=== PATIENT | male | born 1955 | race Caucasian/White ===

== ENCOUNTER 2021-03-12 11:33 | Inpatient (IN) | payer OTHER ==
[~2021-03-12] VITALS: Ht 177.8 cm; Wt 86.8 kg
[~2021-03-12 11:33] MED LIST: ASPI-1071 PO; ATOR10TA PO; BUDE10.22 INH; FURO-150 PO; METO-395 PO
--- NOTE | 2021-03-12 11:52 | NUR ---
Patient confirmed he is not on home O2. SPO2 96% on room air.
[2021-03-12 12:01] LABS: BASOPHILS # (AUTO) 0.1 X10'3 (0-0.2); EOSINOPHILS # (AUTO) 0.1 X10'3 (0-0.9); EOSINOPHILS % (AUTO) 1.5 % (0-6); HEMATOCRIT 46.6 % (42.0-52.0); HEMOGLOBIN 15.3 g/dl (14.0-17.9); LYMPHOCYTES # (AUTO) 1.5 X10'3 (1.1-4.8); LYMPHOCYTES % (AUTO) 19.9 % (21-51); MEAN CORPUSCULAR HEMOGLOBIN 32.3 PG (27.0-31.0); MEAN CORPUSCULAR HGB CONC 32.9 g/dL (33.0-36.5); MEAN CORPUSCULAR VOLUME 98.1 FL (78-98); MEAN PLATELET VOLUME 8.9 FL (7.4-10.4); MONOCYTES # (AUTO) 0.9 X10'3 (0-0.9); MONOCYTES % (AUTO) 12.3 % (2-12); NEUTROPHILS # (AUTO) 4.9 X10'3 (1.8-7.7); NEUTROPHILS % (AUTO) 65.3 % (42-75); PLATELET COUNT 252 X10'3 (140-440); RED BLOOD COUNT 4.75 X10'6 (4.70-6.10); RED CELL DISTRIBUTION WIDTH 13.7 % (11.5-14.5); WHITE BLOOD COUNT 7.6 X10'3 (4.5-11.0)
[2021-03-12 12:15] LABS: ALANINE AMINOTRANSFERASE 24 U/L (12-78); ALBUMIN 3.6 G/DL (3.4-5.0); ALBUMIN/GLOBULIN RATIO 1.1 (1.1-1.5); ALKALINE PHOSPHATASE 101 IU/L (46-116); ANION GAP 4 (8-16); ASPARTATE AMINO TRANSFERASE 29 U/L (10-37); BILIRUBIN,TOTAL 0.5 MG/DL (0.1-1.0); BLOOD UREA NITROGEN 16 MG/DL (7-18); BUN/CREATININE RATIO 14.5 (5.4-32.0); CALCIUM 8.8 MG/DL (8.5-10.1); CHLORIDE 104 MMOL/L (99-107); GLUCOSE 78 MG/DL (70-104); POTASSIUM 4.4 MMOL/L (3.5-5.1); SODIUM 145 MMOL/L (135-145); TOTAL PROTEIN 6.9 G/DL (6.4-8.2); eGFR 67 ML/MIN
[2021-03-12 12:17] LABS: D-DIMER 0.53 MG/L FEU (0-0.50); PARTIAL THROMBOPLASTIN TIME 26 SECONDS (22-32)
[2021-03-12] MEDS ORDERED: FURO-150 PO (12:49)
[2021-03-12] MEDS ORDERED: ASPI81TA52 PO (12:49)
[2021-03-12] MEDS ORDERED: ATOR10TA70 PO (12:49)
[2021-03-12] MEDS ORDERED: METO-395 PO (12:49)
[2021-03-12] MEDS ORDERED: iohexol 350MG/ML 100ml bottle IV ONE (12:54)
[2021-03-12] MEDS ORDERED: ondansetron/PF 4mg/2ml inj IV PRN (13:20)
[2021-03-12] MEDS ORDERED: acetaminophen 325mg tablet PO PRN (13:20)
[2021-03-12] MEDS ORDERED: mag hydrox/Alum hydrox/simeth 30ml oral suspension PO PRN (13:20)
[2021-03-12] MEDS ORDERED: magnesium hydroxide 30ml (MOM) UD suspension PO PRN (13:20)
--- NOTE | 2021-03-12 13:38 | NUR ---
DR LOPEZ AT BEDSIDE, REPORTS PT CAN HAVE MEAL TRAY AT THIS TIME
[2021-03-12] MEDS ORDERED: heparin 10,000 units/1 ML INJ IV PRN (14:25)
[2021-03-12] MEDS ORDERED: heparin 10,000 units/1 ML INJ IV ONE (14:25)
[2021-03-12] MEDS: heparin 25,000 UNIT/250ml bag 250 ML IV SCH (15:04)
[2021-03-12] MEDS: albuterol 2.5 MG/3 ML nebule NEB SCH ×2 (15:21→19:38)
[2021-03-12 16:37] LABS: URINE AMPHETAMINE SCREEN NEGATIVE (Neg); URINE BARBITUATE SCREEN NEGATIVE (Neg); URINE BENZODIAZEPINES SCREEN NEGATIVE (Neg); URINE CANNABINOID SCREEN POSITIVE (Neg); URINE COCAINE SCREEN NEGATIVE (Neg); URINE METHADONE SCREEN NEGATIVE (Neg); URINE OPIATE SCREEN NEGATIVE (Neg); URINE PHENCYCLIDINE SCREEN NEGATIVE (Neg)
[2021-03-12] MEDS ORDERED: albuterol 2.5 MG/3 ML nebule NEB SCH (17:00)
--- NOTE | 2021-03-12 17:48 | NUR ---
PAYTON HUBER FOR INFO BARBARA THOMPSON [phone]
--- NOTE | 2021-03-12 19:11 | NUR ---
Received report from process plant operatorYuliya Loo over phone
--- NOTE | 2021-03-12 19:30 | NUR ---
pt arrived on [place] to room 3014a with rn from er. pt ambulated from [facility] to bed
[2021-03-12 19:38] VITALS: BP 155/122
[2021-03-12] MEDS: budesonide 0.5mg/2ml UD nebule IH SCH (19:39)
--- NOTE | 2021-03-12 20:08 | NUR ---
talked to tableau lead over phone to make sure someone will draw ptt on pt since he's up here now
[2021-03-12 22:00] VITALS: BP 120/73
--- NOTE | 2021-03-12 22:41 | NUR ---
PAGER ID: [phone] MESSAGE: Pt: Katarzyna Burkett holding heparin per protocol ptt is [address] PCU [id number]
[2021-03-13 02:00] VITALS: BP 111/56
[2021-03-13 03:58] LABS: ALBUMIN 3.4 G/DL (3.4-5.0); ANION GAP 7 (8-16); BLOOD UREA NITROGEN 17 MG/DL (7-18); BUN/CREATININE RATIO 18.9 (5.4-32.0); CALCIUM 8.4 MG/DL (8.5-10.1); CHLORIDE 104 MMOL/L (99-107); GLUCOSE 103 MG/DL (70-104); POTASSIUM 4.2 MMOL/L (3.5-5.1); SODIUM 143 MMOL/L (135-145); TOTAL CARBON DIOXIDE 32.2 MMOL/L (24-32); eGFR 85 ML/MIN
[2021-03-13 04:47] LABS: BASOPHILS # (AUTO) 0.1 X10'3 (0-0.2); BASOPHILS % (AUTO) 0.9 % (0-1); EOSINOPHILS # (AUTO) 0.1 X10'3 (0-0.9); EOSINOPHILS % (AUTO) 2.2 % (0-6); HEMATOCRIT 43.3 % (42.0-52.0); HEMOGLOBIN 14.3 g/dl (14.0-17.9); LYMPHOCYTES # (AUTO) 1.9 X10'3 (1.1-4.8); LYMPHOCYTES % (AUTO) 27.5 % (21-51); MEAN CORPUSCULAR HEMOGLOBIN 32.5 PG (27.0-31.0); MEAN CORPUSCULAR HGB CONC 33.1 g/dL (33.0-36.5); MEAN CORPUSCULAR VOLUME 98.1 FL (78-98); MEAN PLATELET VOLUME 9.5 FL (7.4-10.4); MONOCYTES # (AUTO) 0.7 X10'3 (0-0.9); MONOCYTES % (AUTO) 9.8 % (2-12); NEUTROPHILS # (AUTO) 4.1 X10'3 (1.8-7.7); NEUTROPHILS % (AUTO) 59.6 % (42-75); PLATELET COUNT 209 X10'3 (140-440); RED BLOOD COUNT 4.42 X10'6 (4.70-6.10); RED CELL DISTRIBUTION WIDTH 13.9 % (11.5-14.5); WHITE BLOOD COUNT 6.8 X10'3 (4.5-11.0)
[2021-03-13 06:00] VITALS: BP 119/68
--- NOTE | 2021-03-13 06:08 | NUR ---
Problems reprioritized. Patient report given, questions answered & plan of care reviewed with Lea COOLEY.
--- NOTE | 2021-03-13 06:44 | NUR ---
Patient in room PCU 3014A. I have received report from LENORA DANIELLE and had the opportunity to ask questions and assume patient care.
[2021-03-13] MEDS: budesonide 0.5mg/2ml UD nebule IH SCH (07:19)
[2021-03-13] MEDS: albuterol 2.5 MG/3 ML nebule NEB SCH ×2 (07:19→11:37)
[2021-03-13] MEDS: heparin 25,000 UNIT/250ml bag 250 ML IV SCH (07:44)
[2021-03-13] MEDS ORDERED: aspirin 81mg tablet.DR PO SCH (08:00)
[2021-03-13] MEDS ORDERED: atorvastatin 10mg tablet PO SCH (08:00)
[2021-03-13] MEDS ORDERED: furosemide 20MG tablet PO SCH (08:00)
[2021-03-13] MEDS ORDERED: APIX5TAB3 PO (09:16)
[2021-03-13] MEDS ORDERED: apixaban 5mg tablet PO ONE (09:20)
[2021-03-13 11:00] VITALS: BP 127/73
--- NOTE | 2021-03-13 11:00 | NUR ---
Patient in room PCU 3014. I have received report from ZECHARIAH COOLEY and had the opportunity to ask questions and assume patient care.
--- NOTE | 2021-03-13 14:10 | NUR ---
REMOVED PT PIV X2. NO BLEEDING, CANNULAS INTACT. ALL WRITTEN AND VERBAL ORDERS FOR D/C GIVEN. ALL QUESTIONS ANSWERED. PT HAS RAMIREZ MENDEZ. PT TOOK TAXI TO [facility]. Addendum: 03/13/21 at 1417 by Jessy Mccormick RN Amended: Links added.
== END 2021-03-13 14:00 | disposition home or self-care (01) | DRG 175 ==
LOC: ER 11:34 → ED HOLD 13:17 → PCU 3S 20:00
PROVIDERS: ADMIT Family Medicine; ATTEND Family Medicine
PROC: B32T1ZZ Computerized Tomography (CT Scan) of Left Pulmonary Artery using Low Osmolar Contrast (ICD-10-PCS; principal; 2021-03-12)
PROC: B3201ZZ Computerized Tomography (CT Scan) of Thoracic Aorta using Low Osmolar Contrast (ICD-10-PCS; 2021-03-12)
PROC: B32S1ZZ Computerized Tomography (CT Scan) of Right Pulmonary Artery using Low Osmolar Contrast (ICD-10-PCS; 2021-03-12)
DX: I26.99 Other pulmonary embolism without acute cor pulmonale (principal); I50.23 Acute on chronic systolic (congestive) heart failure; Z66 Do not resuscitate; I11.0 Hypertensive heart disease with heart failure; I25.10 Atherosclerotic heart disease of native coronary artery without angina pectoris; J44.9 Chronic obstructive pulmonary disease, unspecified; Z87.891 Personal history of nicotine dependence; Z88.7 Allergy status to serum and vaccine
CPT/HCPCS: 36415; 71045; 71275; 80048; 80053; 80305; 83880; 84484; 85025; 85379; 85610; 85730; 87081; 93005; 94640; 94760; 99285; G0378; J1644; J7626; Q9967

== ENCOUNTER 2021-05-06 08:44 | Emergency (ER) | payer OTHER ==
[~2021-05-06] VITALS: Ht 167.6 cm; Wt 87.2 kg
[~2021-05-06 08:44] MED LIST changes: +APIX5TAB3 PO; -ASPI-1071 PO; +ASPI81TA52 PO; -ATOR10TA PO; +ATOR10TA70 PO; -METO-395 PO
[2021-05-06 10:43] LABS: BASOPHILS # (AUTO) 0.1 X10'3 (0-0.2); EOSINOPHILS # (AUTO) 0.1 X10'3 (0-0.9); EOSINOPHILS % (AUTO) 2.4 % (0-6); HEMATOCRIT 44.4 % (42.0-52.0); HEMOGLOBIN 14.7 g/dl (14.0-17.9); LYMPHOCYTES # (AUTO) 1.4 X10'3 (1.1-4.8); LYMPHOCYTES % (AUTO) 24.5 % (21-51); MEAN CORPUSCULAR HEMOGLOBIN 32.1 PG (27.0-31.0); MEAN CORPUSCULAR HGB CONC 33.2 g/dL (33.0-36.5); MEAN CORPUSCULAR VOLUME 96.5 FL (78-98); MEAN PLATELET VOLUME 8.5 FL (7.4-10.4); MONOCYTES # (AUTO) 0.5 X10'3 (0-0.9); MONOCYTES % (AUTO) 9.5 % (2-12); NEUTROPHILS # (AUTO) 3.5 X10'3 (1.8-7.7); NEUTROPHILS % (AUTO) 62.6 % (42-75); PLATELET COUNT 238 X10'3 (140-440); RED CELL DISTRIBUTION WIDTH 13.7 % (11.5-14.5); WHITE BLOOD COUNT 5.6 X10'3 (4.5-11.0)
[2021-05-06 10:59] LABS: ALANINE AMINOTRANSFERASE 50 U/L (12-78); ALBUMIN 3.8 G/DL (3.4-5.0); ALBUMIN/GLOBULIN RATIO 1.2 (1.1-1.5); ALKALINE PHOSPHATASE 100 IU/L (46-116); ANION GAP 7 (8-16); ASPARTATE AMINO TRANSFERASE 36 U/L (10-37); BILIRUBIN,TOTAL 0.5 MG/DL (0.1-1.0); BLOOD UREA NITROGEN 16 MG/DL (7-18); BUN/CREATININE RATIO 19.5 (5.4-32.0); CALCIUM 8.6 MG/DL (8.5-10.1); CHLORIDE 105 MMOL/L (99-107); CREATININE 0.82 MG/DL (0.60-1.10); GLUCOSE 105 MG/DL (70-104); LIPASE 558 U/L (73-393); POTASSIUM 4.5 MMOL/L (3.5-5.1); SODIUM 144 MMOL/L (135-145); TOTAL CARBON DIOXIDE 32.3 MMOL/L (24-32); TOTAL PROTEIN 6.9 G/DL (6.4-8.2); eGFR > 90 ML/MIN
--- NOTE | 2021-05-06 11:23 | NUR ---
JAS BONEEN IN TO DO RECTAL EXAM
[2021-05-06] MEDS ORDERED: HYDR26CR2 TOP (11:30)
[2021-05-06] MEDS ORDERED: POLY17PO10 PO (11:30)
[2021-05-06 11:38] LABS: CLARITY,URINE SLIGHTLY CLOUDY (Clear); COLOR,URINE YELLOW (Yellow); GLUCOSE, URINE NEGATIVE (Neg); KETONES,URINE NEGATIVE (Neg); LEUKOCYTE ESTERASE ,URINE NEGATIVE (Neg); NITRITES, URINE NEGATIVE (Neg); OCCULT BLOOD,URINE NEGATIVE (Neg); PH,URINE 5.5 (4.8-8.0); PROTEIN,URINE NEGATIVE (Neg); UROBILINOGEN,URINE 0.2 E.U/dL (0.2-1.0)
[2021-05-06 11:39] LABS: UA COLLECTION TYPE NON-SPECIFIED
[2021-05-06 11:45] LABS: MUCUS STRANDS NONE SEEN /LPF (Neg); SQUAMOUS EPITHELIAL CELL,UR FEW /LPF (FEW)
[2021-05-06 11:46] LABS: BACTERIA,URINE NONE SEEN /HPF (Neg); RBC,URINE 0-2 /HPF (0-2); WBC,URINE NONE SEEN /HPF (0-4)
[2021-05-06 11:50] VITALS: BP 135/88
== END 2021-05-06 11:51 | disposition home or self-care (01) ==
LOC: ER 08:44
DX: K64.8 Other hemorrhoids (principal); R19.7 Diarrhea, unspecified; K92.1 Melena; J44.9 Chronic obstructive pulmonary disease, unspecified; Z88.8 Allergy status to other drugs, medicaments and biological substances; Z79.82 Long term (current) use of aspirin; Z79.899 Other long term (current) drug therapy
CPT/HCPCS: 36415; 80053; 81001; 83690; 85025; 99283

== ENCOUNTER 2022-01-11 15:43 | Inpatient (IN) | payer OTHER, MEDICARE ==
[~2022-01-11] VITALS: Ht 167.6 cm; Wt 84.1 kg
[~2022-01-11 15:43] MED LIST changes: +HYDR26CR2 TOP
[2022-01-11 16:14] LABS: BASOPHILS # (AUTO) 0.1 X10'3 (0-0.2); EOSINOPHILS # (AUTO) 0.2 X10'3 (0-0.9); HEMATOCRIT 51.9 % (42.0-52.0); HEMOGLOBIN 16.9 g/dl (14.0-17.9); LYMPHOCYTES # (AUTO) 1.7 X10'3 (1.1-4.8); LYMPHOCYTES % (AUTO) 18.3 % (21-51); MEAN CORPUSCULAR HEMOGLOBIN 31.8 PG (27.0-31.0); MEAN CORPUSCULAR HGB CONC 32.7 g/dL (33.0-36.5); MEAN CORPUSCULAR VOLUME 97.3 FL (78-98); MEAN PLATELET VOLUME 8.3 FL (7.4-10.4); MONOCYTES # (AUTO) 1.1 X10'3 (0-0.9); MONOCYTES % (AUTO) 11.5 % (2-12); NEUTROPHILS # (AUTO) 6.2 X10'3 (1.8-7.7); NEUTROPHILS % (AUTO) 67.2 % (42-75); PLATELET COUNT 267 X10'3 (140-440); RED BLOOD COUNT 5.33 X10'6 (4.70-6.10); RED CELL DISTRIBUTION WIDTH 14.1 % (11.5-14.5); WHITE BLOOD COUNT 9.2 X10'3 (4.5-11.0)
[2022-01-11] MEDS ORDERED: albuterol 2.5 MG/3 ML nebule NEB ONE (16:25)
[2022-01-11] MEDS ORDERED: methylPREDNISolone sod succ 125mg/2ml vial IV ONE (16:25)
[2022-01-11 16:27] LABS: CLARITY,URINE CLEAR (Clear); COLOR,URINE YELLOW (Yellow); GLUCOSE, URINE NEGATIVE (Neg); KETONES,URINE NEGATIVE (Neg); LEUKOCYTE ESTERASE ,URINE NEGATIVE (Neg); NITRITES, URINE NEGATIVE (Neg); OCCULT BLOOD,URINE NEGATIVE (Neg); PH,URINE 6.5 (4.8-8.0); PROTEIN,URINE TRACE mg/dl (Neg); UROBILINOGEN,URINE 0.2 E.U/dL (0.2-1.0)
[2022-01-11 16:31] LABS: ALANINE AMINOTRANSFERASE 29 U/L (12-78); ALBUMIN 3.6 G/DL (3.4-5.0); ALKALINE PHOSPHATASE 134 IU/L (46-116); ANION GAP 8 (8-16); ASPARTATE AMINO TRANSFERASE 23 U/L (10-37); BILIRUBIN,TOTAL 0.5 MG/DL (0.1-1.0); BLOOD UREA NITROGEN 19 MG/DL (7-18); BUN/CREATININE RATIO 19.2 (5.4-32.0); CHLORIDE 101 MMOL/L (99-107); CREATININE 0.99 MG/DL (0.60-1.10); GLUCOSE 104 MG/DL (70-104); POTASSIUM 4.7 MMOL/L (3.5-5.1); SODIUM 141 MMOL/L (135-145); TOTAL CARBON DIOXIDE 32.1 MMOL/L (24-32); TOTAL PROTEIN 7.3 G/DL (6.4-8.2); eGFR 76 ML/MIN
[2022-01-11 16:38] LABS: LIPASE 163 U/L (73-393)
[2022-01-11 16:38] LABS: UA COLLECTION TYPE NON-SPECIFIED
[2022-01-11 16:40] LABS: BACTERIA,URINE NONE SEEN /HPF (Neg); MUCUS STRANDS NONE SEEN /LPF (Neg); RBC,URINE NONE SEEN /HPF (0-2); SQUAMOUS EPITHELIAL CELL,UR FEW /LPF (FEW); WBC,URINE 0-4 /HPF (0-4)
[2022-01-11] MEDS ORDERED: iohexol 350MG/ML 100ml bottle IV ONE (17:25)
[2022-01-11 17:44] LABS: APTT 28 SECONDS (22-32)
--- NOTE | 2022-01-11 18:49 | NUR ---
BARBARA (SON/POA) [phone]
[2022-01-11] MEDS ORDERED: furosemide 10 MG/1 ML 10ml inj IV ONE (19:00)
[2022-01-11] MEDS ORDERED: ipratropium/albuterol 3ml nebule NEB PRN (20:20)
[2022-01-11] MEDS ORDERED: magnesium 4gm in 100ml NS 100 ML IV PRN (20:20)
[2022-01-11] MEDS ORDERED: albuterol 2.5 MG/3 ML nebule NEB PRN (20:20)
[2022-01-11] MEDS ORDERED: PERFLUTREN PROTEIN-A MICROSPHR (Optison) 0.22 MG/ML 3ML VIAL IV PRN (20:20)
[2022-01-11] MEDS ORDERED: magnesium hydroxide 30ml (MOM) UD suspension PO PRN (20:20)
[2022-01-11] MEDS ORDERED: ondansetron/PF 4mg/2ml inj IV PRN (20:20)
[2022-01-11] MEDS ORDERED: potassium CL 10mEq/100ml bag 100 ML IV PRN (20:20)
[2022-01-11] MEDS ORDERED: magnesium 2GM in 50ml NS 50 ML IV PRN (20:20)
[2022-01-11] MEDS ORDERED: mag hydrox/Alum hydrox/simeth 30ml oral suspension PO PRN (20:20)
[2022-01-11] MEDS ORDERED: potassium Cl 20 mEq SR tablet PO PRN ×2 (20:20)
[2022-01-11] MEDS ORDERED: acetaminophen 325mg tablet PO PRN (20:20)
--- NOTE | 2022-01-11 23:38 | NUR ---
UNABLE TO DO MED REC DUE TO PATIENT NOT KNOWING ANY OF HIS MEDS. [facility] SAID [facility].
[2022-01-12 05:20] LABS: BASOPHILS % (AUTO) 0.3 % (0-1); EOSINOPHILS % (AUTO) 0.1 % (0-6); HEMATOCRIT 51.3 % (42.0-52.0); HEMOGLOBIN 17.1 g/dl (14.0-17.9); LYMPHOCYTES # (AUTO) 0.6 X10'3 (1.1-4.8); LYMPHOCYTES % (AUTO) 5.8 % (21-51); MEAN CORPUSCULAR HEMOGLOBIN 32.2 PG (27.0-31.0); MEAN CORPUSCULAR HGB CONC 33.4 g/dL (33.0-36.5); MEAN CORPUSCULAR VOLUME 96.4 FL (78-98); MEAN PLATELET VOLUME 8.7 FL (7.4-10.4); MONOCYTES # (AUTO) 0.1 X10'3 (0-0.9); MONOCYTES % (AUTO) 1.3 % (2-12); NEUTROPHILS # (AUTO) 9.2 X10'3 (1.8-7.7); NEUTROPHILS % (AUTO) 92.5 % (42-75); PLATELET COUNT 275 X10'3 (140-440); RED BLOOD COUNT 5.32 X10'6 (4.70-6.10); RED CELL DISTRIBUTION WIDTH 13.9 % (11.5-14.5); WHITE BLOOD COUNT 9.9 X10'3 (4.5-11.0)
[2022-01-12 05:33] LABS: ALANINE AMINOTRANSFERASE 29 U/L (12-78); ALBUMIN 3.4 G/DL (3.4-5.0); ALKALINE PHOSPHATASE 120 IU/L (46-116); ANION GAP 10 (8-16); ASPARTATE AMINO TRANSFERASE 24 U/L (10-37); BILIRUBIN,TOTAL 0.6 MG/DL (0.1-1.0); BLOOD UREA NITROGEN 22 MG/DL (7-18); BUN/CREATININE RATIO 22.7 (5.4-32.0); CALCIUM 8.6 MG/DL (8.5-10.1); CHLORIDE 101 MMOL/L (99-107); CREATININE 0.97 MG/DL (0.60-1.10); GLUCOSE 149 MG/DL (70-104); MAGNESIUM 1.5 MG/DL (1.5-2.4); POTASSIUM 4.2 MMOL/L (3.5-5.1); SODIUM 141 MMOL/L (135-145); TOTAL CARBON DIOXIDE 29.8 MMOL/L (24-32); TOTAL PROTEIN 6.9 G/DL (6.4-8.2); eGFR 78 ML/MIN
[2022-01-12] MEDS: budesonide 0.5mg/2ml UD nebule IH SCH ×2 (07:31→19:54)
--- NOTE | 2022-01-12 07:34 | NUR ---
RT AT BEDSIDE AT THIS TIME.
[2022-01-12] MEDS: K and/or MAG REPLACEMENT MC SCH ×2 (07:43→20:00)
[2022-01-12] MEDS: methylPREDNISolone sod succ/PF 40mg inj. IV SCH ×2 (07:48→20:18)
[2022-01-12] MEDS: docusate sod 100mg capsule PO SCH ×2 (07:49→20:17)
[2022-01-12] MEDS: furosemide 40mg/4ml inj IV SCH ×2 (07:49→20:21)
--- NOTE | 2022-01-12 08:20 | NUR ---
GAS STATION MANAGER AT BEDSIDE.
[2022-01-12] MEDS ORDERED: TIOT4MIS3 PO (09:42)
[2022-01-12] MEDS ORDERED: FURO-150 PO (09:42)
[2022-01-12] MEDS ORDERED: ATOR10TA70 PO (09:42)
[2022-01-12] MEDS ORDERED: ALBU8.5H17 IH (09:42)
[2022-01-12] MEDS ORDERED: SILD100T PO (09:42)
[2022-01-12] MEDS ORDERED: ASPI-1265 PO (09:42)
[2022-01-12] MEDS ORDERED: CHOL20002 PO (09:42)
[2022-01-12] MEDS ORDERED: FLO0.4C PO (09:42)
[2022-01-12] MEDS ORDERED: ALBUTEROL INHALER 1 PUFF/90 MCG INHALER IH PRN (11:55)
[2022-01-12] MEDS ORDERED: non-formulary drug (Sildenafil Citrate* (Viagra*) 1 TAB) PO PRN (11:55)
--- NOTE | 2022-01-12 15:13 | NUR ---
Pt arrived to floor at 1500. A/ox4, 2 RN skin check completed. Pt has red rash to bilateral arms, Pt states he was exposed to poison oak 01/10, and it is spreading. paged requesting order for benedryl. Pt on RA, denies pain.
--- NOTE | 2022-01-12 15:16 | NUR ---
provider notification at 1510: Message: Hosea Mckeonpro Rm:[id number]; Pt just arrived to floor from ED. Has red rash to bilateral Forearms, pt exposed to Poison [place] on 01/10, pt says "its spreading". Can he have an order for Benadryl or something? LENORA Hyatt
[2022-01-12 15:54] VITALS: BP 119/79
[2022-01-12 18:00] VITALS: BP 126/87
--- NOTE | 2022-01-12 18:30 | NUR ---
Patient in room PCU 3018. I have received report from ELISEO COOLEY and had the opportunity to ask questions and assume patient care.
[2022-01-12] MEDS ORDERED: diphenhydrAMINE 25mg capsule PO ONE (19:50)
[2022-01-12] MEDS: enoxaparin 40mg/0.4ml syringe SQ SCH (20:24)
[2022-01-12 22:00] VITALS: BP 113/73
[2022-01-12] MEDS: triamcinolone acetonide 0.5% cream 15gm TP SCH (22:17)
[2022-01-13 02:00] VITALS: BP 101/67
[2022-01-13 06:00] VITALS: BP 119/83
--- NOTE | 2022-01-13 06:30 | NUR ---
Problems reprioritized. Patient report given, questions answered & plan of care reviewed with ELISEO COOLEY.
[2022-01-13 07:09] LABS: BASOPHILS % (AUTO) 0.1 % (0-1); EOSINOPHILS % (AUTO) 0 % (0-6); HEMATOCRIT 50.7 % (42.0-52.0); HEMOGLOBIN 17.1 g/dl (14.0-17.9); LYMPHOCYTES # (AUTO) 0.8 X10'3 (1.1-4.8); LYMPHOCYTES % (AUTO) 3.9 % (21-51); MEAN CORPUSCULAR HEMOGLOBIN 32.4 PG (27.0-31.0); MEAN CORPUSCULAR HGB CONC 33.7 g/dL (33.0-36.5); MEAN CORPUSCULAR VOLUME 96.3 FL (78-98); MEAN PLATELET VOLUME 8.7 FL (7.4-10.4); MONOCYTES # (AUTO) 0.9 X10'3 (0-0.9); MONOCYTES % (AUTO) 4.5 % (2-12); NEUTROPHILS # (AUTO) 18.5 X10'3 (1.8-7.7); NEUTROPHILS % (AUTO) 91.5 % (42-75); PLATELET COUNT 310 X10'3 (140-440); RED BLOOD COUNT 5.27 X10'6 (4.70-6.10); RED CELL DISTRIBUTION WIDTH 14.1 % (11.5-14.5); WHITE BLOOD COUNT 20.3 X10'3 (4.5-11.0)
--- NOTE | 2022-01-13 07:26 | NUR ---
Provider Notification sent at 0726 Katarzyna Mckeon [id number] Pt is asking for something IV for his Poison OAK rash on bilateral arms. LENORA Hyatt
[2022-01-13 07:49] LABS: ALANINE AMINOTRANSFERASE 30 U/L (12-78); ALBUMIN 3.6 G/DL (3.4-5.0); ALKALINE PHOSPHATASE 116 IU/L (46-116); ANION GAP 13 (8-16); ASPARTATE AMINO TRANSFERASE 22 U/L (10-37); BILIRUBIN,TOTAL 0.6 MG/DL (0.1-1.0); BLOOD UREA NITROGEN 48 MG/DL (7-18); BUN/CREATININE RATIO 35.8 (5.4-32.0); CALCIUM 8.3 MG/DL (8.5-10.1); CHLORIDE 98 MMOL/L (99-107); CREATININE 1.34 MG/DL (0.60-1.10); GLUCOSE 124 MG/DL (70-104); MAGNESIUM 1.8 MG/DL (1.5-2.4); POTASSIUM 4.6 MMOL/L (3.5-5.1); SODIUM 139 MMOL/L (135-145); TOTAL CARBON DIOXIDE 28.1 MMOL/L (24-32); TOTAL PROTEIN 7.2 G/DL (6.4-8.2); eGFR 53 ML/MIN
[2022-01-13] MEDS: budesonide 0.5mg/2ml UD nebule IH SCH ×2 (07:53→20:28)
[2022-01-13] MEDS ORDERED: Stiolto Respimat Inhal Spray PO SCH (08:00)
[2022-01-13] MEDS: methylPREDNISolone sod succ/PF 40mg inj. IV SCH ×2 (08:32→20:09)
[2022-01-13] MEDS: cholecalciferol (vitamin D3) 1,000 unit (25mcg) tablet PO SCH (08:32)
[2022-01-13] MEDS: aspirin 81mg tab.chew PO SCH (08:32)
[2022-01-13] MEDS: tamsulosin 0.4mg capsule PO SCH (08:32)
[2022-01-13] MEDS: atorvastatin 10mg tablet PO SCH (08:32)
[2022-01-13] MEDS: docusate sod 100mg capsule PO SCH ×2 (08:33→20:09)
[2022-01-13] MEDS: furosemide 40mg/4ml inj IV SCH ×2 (08:33→12:20)
[2022-01-13] MEDS: triamcinolone acetonide 0.5% cream 15gm TP SCH ×2 (08:33→20:10)
[2022-01-13 11:00] VITALS: BP 131/87
[2022-01-13 15:00] VITALS: BP 114/84
--- NOTE | 2022-01-13 16:44 | NUR ---
pt a/ox4, VSS, denies pain, breathing better today than yesterday, NO SOB. Rash to bilateral arms improving. BM today, patient showered today. Has good appetite. safety maintained.
[2022-01-13] MEDS: K and/or MAG REPLACEMENT MC SCH ×2 (18:42→20:00)
[2022-01-13 18:45] VITALS: BP 137/91
[2022-01-13] MEDS: enoxaparin 40mg/0.4ml syringe SQ SCH (20:11)
[2022-01-13 22:00] VITALS: BP 140/80
[2022-01-14 03:38] VITALS: BP 116/70
[2022-01-14 06:00] VITALS: BP 136/90
--- NOTE | 2022-01-14 06:27 | NUR ---
Problems reprioritized. Patient report given, questions answered & plan of care reviewed with LENORA Hyatt.
[2022-01-14 06:36] LABS: BASOPHILS % (AUTO) 0.1 % (0-1); EOSINOPHILS % (AUTO) 0 % (0-6); HEMATOCRIT 49.5 % (42.0-52.0); HEMOGLOBIN 16.4 g/dl (14.0-17.9); LYMPHOCYTES # (AUTO) 0.9 X10'3 (1.1-4.8); LYMPHOCYTES % (AUTO) 5.5 % (21-51); MEAN CORPUSCULAR HEMOGLOBIN 31.7 PG (27.0-31.0); MEAN CORPUSCULAR VOLUME 95.9 FL (78-98); MEAN PLATELET VOLUME 8.5 FL (7.4-10.4); MONOCYTES % (AUTO) 5.7 % (2-12); NEUTROPHILS # (AUTO) 14.8 X10'3 (1.8-7.7); NEUTROPHILS % (AUTO) 88.7 % (42-75); PLATELET COUNT 283 X10'3 (140-440); RED BLOOD COUNT 5.17 X10'6 (4.70-6.10); RED CELL DISTRIBUTION WIDTH 13.6 % (11.5-14.5); WHITE BLOOD COUNT 16.7 X10'3 (4.5-11.0)
[2022-01-14 06:51] LABS: ALANINE AMINOTRANSFERASE 33 U/L (12-78); ALBUMIN 3.4 G/DL (3.4-5.0); ALKALINE PHOSPHATASE 111 IU/L (46-116); ANION GAP 7 (8-16); ASPARTATE AMINO TRANSFERASE 24 U/L (10-37); BILIRUBIN,TOTAL 0.5 MG/DL (0.1-1.0); BLOOD UREA NITROGEN 44 MG/DL (7-18); BUN/CREATININE RATIO 39.6 (5.4-32.0); CALCIUM 7.9 MG/DL (8.5-10.1); CHLORIDE 100 MMOL/L (99-107); CREATININE 1.11 MG/DL (0.60-1.10); GLUCOSE 113 MG/DL (70-104); MAGNESIUM 2.2 MG/DL (1.5-2.4); POTASSIUM 4.4 MMOL/L (3.5-5.1); SODIUM 138 MMOL/L (135-145); TOTAL CARBON DIOXIDE 30.7 MMOL/L (24-32); TOTAL PROTEIN 6.9 G/DL (6.4-8.2); eGFR 66 ML/MIN
[2022-01-14] MEDS: tamsulosin 0.4mg capsule PO SCH (07:57)
[2022-01-14] MEDS: cholecalciferol (vitamin D3) 1,000 unit (25mcg) tablet PO SCH (07:57)
[2022-01-14] MEDS: aspirin 81mg tab.chew PO SCH (07:57)
[2022-01-14] MEDS: docusate sod 100mg capsule PO SCH (07:57)
[2022-01-14] MEDS: atorvastatin 10mg tablet PO SCH (07:57)
[2022-01-14] MEDS: methylPREDNISolone sod succ/PF 40mg inj. IV SCH (07:58)
[2022-01-14] MEDS: triamcinolone acetonide 0.5% cream 15gm TP SCH (08:02)
[2022-01-14] MEDS: furosemide 40mg/4ml inj IV SCH (08:04)
[2022-01-14] MEDS: budesonide 0.5mg/2ml UD nebule IH SCH (08:13)
[2022-01-14] MEDS ORDERED: PRED20TA PO (09:40)
[2022-01-14 11:00] VITALS: BP 136/90
[2022-01-14 11:01] VITALS: BP 145/79
[2022-01-14 15:15] VITALS: BP 136/94
--- NOTE | 2022-01-14 15:33 | NUR ---
Discharge Note: Pt a/ox4, independent in room, steady on feet, room air, VSS. No c/o pain, no sob. IV removed intact. Discharge instructions reviewed with patient, patient verbalized understanding. Pt said he will brick picker prescription tomorrow. Voiding good, BM today. Pt taken off floor in wheelchair, Son picked up patient.
== END 2022-01-14 15:21 | disposition home or self-care (01) | DRG 190 ==
LOC: ER 15:44 → ED HOLD 20:24 → PCU 3S 01-12 15:36
PROVIDERS: ADMIT Family Medicine; ATTEND Family Medicine
PROC: B32T1ZZ Computerized Tomography (CT Scan) of Left Pulmonary Artery using Low Osmolar Contrast (ICD-10-PCS; principal; 2022-01-11)
PROC: B3201ZZ Computerized Tomography (CT Scan) of Thoracic Aorta using Low Osmolar Contrast (ICD-10-PCS; 2022-01-11)
PROC: B32S1ZZ Computerized Tomography (CT Scan) of Right Pulmonary Artery using Low Osmolar Contrast (ICD-10-PCS; 2022-01-11)
DX: J44.1 Chronic obstructive pulmonary disease with (acute) exacerbation (principal); I50.23 Acute on chronic systolic (congestive) heart failure; I21.A1 Myocardial infarction type 2; I11.0 Hypertensive heart disease with heart failure; I71.2 Thoracic aortic aneurysm, without rupture; L23.7 Allergic contact dermatitis due to plants, except food; Z20.822 Contact with and (suspected) exposure to COVID-19; M19.90 Unspecified osteoarthritis, unspecified site; M54.50 Low back pain, unspecified; Z66 Do not resuscitate; Z80.3 Family history of malignant neoplasm of breast; Z86.711 Personal history of pulmonary embolism; Z87.891 Personal history of nicotine dependence; Z88.7 Allergy status to serum and vaccine; Z79.899 Other long term (current) drug therapy; Z79.82 Long term (current) use of aspirin; Z82.49 Family history of ischemic heart disease and other diseases of the circulatory system; Z84.89 Family history of other specified conditions
CPT/HCPCS: 36415; 71045; 71275; 72110; 73502; 80053; 81001; 83690; 83735; 83880; 84484; 85025; 85610; 85730; 87081; 87635; 93005; 93306; 94640; 94760; 99285; C9803; G0378; J1650; J1940; J2920; J2930; Q0163; Q9967

== ENCOUNTER 2022-03-11 12:35 | Emergency (ER) | payer OTHER, MEDICARE ==
[~2022-03-11] VITALS: Ht 167.6 cm; Wt 81.8 kg
[~2022-03-11 12:35] MED LIST changes: +ALBU8.5H17 IH; -APIX5TAB3 PO; +ASPI-1265 PO; -ASPI81TA52 PO; -BUDE10.22 INH; +CHOL20002 PO; +FLO0.4C PO; -HYDR26CR2 TOP; +SILD100T PO; +TIOT4MIS3 PO
[2022-03-11 12:39] VITALS: BP 153/87
[2022-03-11 13:00] LABS: BASOPHILS # (AUTO) 0.1 X10'3 (0-0.2); BASOPHILS % (AUTO) 0.8 % (0-1); EOSINOPHILS # (AUTO) 0.1 X10'3 (0-0.9); EOSINOPHILS % (AUTO) 1.4 % (0-6); HEMATOCRIT 48.2 % (42.0-52.0); HEMOGLOBIN 16.1 g/dl (14.0-17.9); LYMPHOCYTES # (AUTO) 1.5 X10'3 (1.1-4.8); LYMPHOCYTES % (AUTO) 15.6 % (21-51); MEAN CORPUSCULAR HEMOGLOBIN 32.4 PG (27.0-31.0); MEAN CORPUSCULAR HGB CONC 33.5 g/dL (33.0-36.5); MEAN CORPUSCULAR VOLUME 96.8 FL (78-98); MEAN PLATELET VOLUME 8.8 FL (7.4-10.4); MONOCYTES # (AUTO) 0.9 X10'3 (0-0.9); MONOCYTES % (AUTO) 8.9 % (2-12); NEUTROPHILS # (AUTO) 7.1 X10'3 (1.8-7.7); NEUTROPHILS % (AUTO) 73.3 % (42-75); PLATELET COUNT 241 X10'3 (140-440); RED BLOOD COUNT 4.98 X10'6 (4.70-6.10); RED CELL DISTRIBUTION WIDTH 13.6 % (11.5-14.5); WHITE BLOOD COUNT 9.7 X10'3 (4.5-11.0)
[2022-03-11 13:15] LABS: ALANINE AMINOTRANSFERASE 25 U/L (12-78); ALBUMIN 3.5 G/DL (3.4-5.0); ALKALINE PHOSPHATASE 118 IU/L (46-116); ANION GAP 8 (8-16); ASPARTATE AMINO TRANSFERASE 26 U/L (10-37); BILIRUBIN,TOTAL 0.7 MG/DL (0.1-1.0); BLOOD UREA NITROGEN 14 MG/DL (7-18); BUN/CREATININE RATIO 14.1 (5.4-32.0); CALCIUM 8.7 MG/DL (8.5-10.1); CHLORIDE 103 MMOL/L (99-107); CREATININE 0.99 MG/DL (0.60-1.10); GLUCOSE 96 MG/DL (70-104); POTASSIUM 4.2 MMOL/L (3.5-5.1); SODIUM 141 MMOL/L (135-145); TOTAL CARBON DIOXIDE 30.1 MMOL/L (24-32); eGFR 76 ML/MIN
== END 2022-03-11 20:34 | disposition left against medical advice (07) ==
LOC: ER 12:35
DX: R06.02 Shortness of breath (principal); Z53.21 Procedure and treatment not carried out due to patient leaving prior to being seen by health care provider
CPT/HCPCS: 36415; 71045; 80053; 83880; 84484; 85025

== ENCOUNTER 2022-04-22 07:13 | Inpatient (IN) | payer OTHER, MEDICARE ==
[~2022-04-22] VITALS: Ht 172.7 cm; Wt 84.1 kg
[2022-04-22 08:58] LABS: BASOPHILS # (AUTO) 0.1 X10'3 (0-0.2); BASOPHILS % (AUTO) 1.1 % (0-1); EOSINOPHILS # (AUTO) 0.2 X10'3 (0-0.9); EOSINOPHILS % (AUTO) 2.3 % (0-6); HEMATOCRIT 44.8 % (42.0-52.0); HEMOGLOBIN 14.8 g/dl (14.0-17.9); LYMPHOCYTES # (AUTO) 1.2 X10'3 (1.1-4.8); LYMPHOCYTES % (AUTO) 16.5 % (21-51); MEAN CORPUSCULAR HEMOGLOBIN 31.7 PG (27.0-31.0); MEAN CORPUSCULAR HGB CONC 33.1 g/dL (33.0-36.5); MEAN CORPUSCULAR VOLUME 95.7 FL (78-98); MONOCYTES # (AUTO) 0.8 X10'3 (0-0.9); MONOCYTES % (AUTO) 10.9 % (2-12); NEUTROPHILS % (AUTO) 69.2 % (42-75); PLATELET COUNT 226 X10'3 (140-440); RED BLOOD COUNT 4.68 X10'6 (4.70-6.10); RED CELL DISTRIBUTION WIDTH 13.8 % (11.5-14.5); WHITE BLOOD COUNT 7.2 X10'3 (4.5-11.0)
[2022-04-22 09:20] LABS: ALANINE AMINOTRANSFERASE 31 U/L (12-78); ALBUMIN 3.4 G/DL (3.4-5.0); ALKALINE PHOSPHATASE 102 IU/L (46-116); ANION GAP 6 (8-16); ASPARTATE AMINO TRANSFERASE 22 U/L (10-37); BILIRUBIN,TOTAL 0.7 MG/DL (0.1-1.0); BLOOD UREA NITROGEN 13 MG/DL (7-18); BUN/CREATININE RATIO 13.1 (5.4-32.0); CALCIUM 8.5 MG/DL (8.5-10.1); CHLORIDE 105 MMOL/L (99-107); CREATININE 0.99 MG/DL (0.60-1.10); GLUCOSE 105 MG/DL (70-104); POTASSIUM 3.9 MMOL/L (3.5-5.1); SODIUM 143 MMOL/L (135-145); TOTAL CARBON DIOXIDE 31.6 MMOL/L (24-32); TOTAL PROTEIN 6.7 G/DL (6.4-8.2); eGFR 76 ML/MIN
--- NOTE | 2022-04-22 09:31 | NUR ---
Pt denies cp at this time, continues to be monitored, pt admitted to hospital.
[2022-04-22] MEDS ORDERED: heparin 10,000 units/1 ML INJ IV PRN (10:50)
[2022-04-22] MEDS ORDERED: heparin 10,000 units/1 ML INJ IV ONE (10:50)
[2022-04-22] MEDS ORDERED: magnesium Cl slow-release 64mg tablet PO PRN (11:15)
[2022-04-22] MEDS ORDERED: magnesium hydroxide 30ml (MOM) UD suspension PO PRN (11:15)
[2022-04-22] MEDS ORDERED: bisacodyl 10mg suppository rectal RC PRN (11:15)
[2022-04-22] MEDS ORDERED: diphenhydrAMINE 25mg capsule PO PRN (11:15)
[2022-04-22] MEDS: normal saline 1000ml 1,000 ML IV SCH (11:15)
[2022-04-22] MEDS ORDERED: potassium CL 10mEq/100ml bag 100 ML IV PRN (11:15)
[2022-04-22] MEDS ORDERED: acetaminophen 325mg tablet PO PRN ×2 (11:15)
[2022-04-22] MEDS ORDERED: magnesium 2GM in 50ml NS 50 ML IV PRN (11:15)
[2022-04-22] MEDS ORDERED: POTASSIUM BICARB 20meq eff tab 20 MEQ TABLET.EFF PO PRN ×2 (11:15)
[2022-04-22] MEDS ORDERED: ondansetron/PF 4mg/2ml inj IV PRN (11:15)
[2022-04-22] MEDS ORDERED: morphine 2 MG/ML inj. syringe IV PRN ×2 (11:15)
[2022-04-22] MEDS ORDERED: magnesium 4gm in 100ml NS 100 ML IV PRN (11:15)
[2022-04-22] MEDS ORDERED: mag hydrox/Alum hydrox/simeth 30ml oral suspension PO PRN (11:15)
[2022-04-22] MEDS ORDERED: HYDROcodone/acetaminophen 10/325mg tab PO PRN (11:15)
[2022-04-22] MEDS ORDERED: furosemide 10 MG/1 ML 10ml inj IV ONE (11:15)
[2022-04-22] MEDS: HEPARIN SOD,PORK IN 0.45% NACL 250 ML IV SCH (11:30)
[2022-04-22 11:35] LABS: HEMOGLOBIN A1C 6.4 % (4.5-6.2)
[2022-04-22 11:42] LABS: APTT 28 SECONDS (22-32)
[2022-04-22 11:46] LABS: BASOPHILS % (AUTO) 0.5 % (0-1); EOSINOPHILS # (AUTO) 0.1 X10'3 (0-0.9); EOSINOPHILS % (AUTO) 1.8 % (0-6); HEMOGLOBIN 14.6 g/dl (14.0-17.9); LYMPHOCYTES # (AUTO) 1.4 X10'3 (1.1-4.8); LYMPHOCYTES % (AUTO) 18.5 % (21-51); MEAN CORPUSCULAR HEMOGLOBIN 32.8 PG (27.0-31.0); MEAN CORPUSCULAR VOLUME 96.5 FL (78-98); MEAN PLATELET VOLUME 8.8 FL (7.4-10.4); MONOCYTES # (AUTO) 0.7 X10'3 (0-0.9); MONOCYTES % (AUTO) 9.5 % (2-12); NEUTROPHILS # (AUTO) 5.2 X10'3 (1.8-7.7); NEUTROPHILS % (AUTO) 69.7 % (42-75); PLATELET COUNT 220 X10'3 (140-440); RED BLOOD COUNT 4.46 X10'6 (4.70-6.10); WHITE BLOOD COUNT 7.5 X10'3 (4.5-11.0)
--- NOTE | 2022-04-22 13:06 | NUR ---
Pt voiding without difficulty, voided 800cc of clear yellow urine.
--- NOTE | 2022-04-22 13:43 | NUR ---
Pt voided 500cc of clear yellow urine.
--- NOTE | 2022-04-22 15:13 | NUR ---
Pt voided 600cc of clear yellow urine.Pt continues to be monitored.
[2022-04-22 15:27] LABS: CLARITY,URINE CLEAR (Clear); GLUCOSE, URINE NEGATIVE (Neg); KETONES,URINE NEGATIVE (Neg); LEUKOCYTE ESTERASE ,URINE NEGATIVE (Neg); NITRITES, URINE NEGATIVE (Neg); OCCULT BLOOD,URINE TRACE-INTACT (Neg); PROTEIN,URINE NEGATIVE (Neg); UROBILINOGEN,URINE 0.2 E.U/dL (0.2-1.0)
[2022-04-22 15:29] LABS: COLOR,URINE STRAW (Yellow); UA COLLECTION TYPE NON-SPECIFIED
[2022-04-22] MEDS ORDERED: ATOR20TA66 PO (15:29)
[2022-04-22 15:34] LABS: BACTERIA,URINE NONE SEEN /HPF (Neg); MUCUS STRANDS NONE SEEN /LPF (Neg); RBC,URINE 0-2 /HPF (0-2); SQUAMOUS EPITHELIAL CELL,UR NONE SEEN /LPF (FEW); WBC,URINE NONE SEEN /HPF (0-4)
[2022-04-22] MEDS ORDERED: ALBUTEROL INHALER 1 PUFF/90 MCG INHALation IH PRN (16:05)
--- NOTE | 2022-04-22 18:24 | NUR ---
Report given to Winter.
[2022-04-22] MEDS: K and/or MAG REPLACEMENT MC SCH (19:58)
[2022-04-22] MEDS: docusate sod 100mg capsule PO SCH (20:43)
[2022-04-22] MEDS: furosemide 10 MG/1 ML 10ml inj IV SCH (20:43)
[2022-04-22 21:00] VITALS: BP 156/75
[2022-04-22 21:00] LABS: APTT 54 SECONDS (22-32)
[2022-04-22 22:00] VITALS: BP 139/82
[2022-04-23] VITALS (15 sets, daily range): BP systolic 113–143; BP diastolic 62–88
--- NOTE | 2022-04-23 06:34 | NUR ---
Problems reprioritized. Patient report given, questions answered & plan of care reviewed with Gerardo Dwyer. Addendum: 04/23/22 at 0635 by Yuliet Espinoza RN Amended: Links added.
--- NOTE | 2022-04-23 07:08 | NUR ---
Patient in room PCU 3018. I have received report from Yuliet COOLEY and had the opportunity to ask questions and assume patient care.
[2022-04-23] MEDS: cholecalciferol (vitamin D3) 1,000 unit (25mcg) tablet PO SCH (07:37)
[2022-04-23] MEDS: docusate sod 100mg capsule PO SCH ×2 (07:37→21:40)
[2022-04-23] MEDS: tamsulosin 0.4mg capsule PO SCH (07:38)
[2022-04-23] MEDS: atorvastatin 20mg tablet PO SCH (07:38)
[2022-04-23] MEDS: aspirin 81mg tab.chew PO SCH (07:38)
[2022-04-23] MEDS: furosemide 10 MG/1 ML 10ml inj IV SCH ×2 (07:46→21:40)
[2022-04-23] MEDS: K and/or MAG REPLACEMENT MC SCH ×2 (08:00→20:00)
[2022-04-23] MEDS ORDERED: Tiotropium Br/Olodaterol HCl (Stiolto Respimat Inhal Spray) 2 PUFFS PO SCH (08:00)
[2022-04-23 08:03] LABS: BASOPHILS # (AUTO) 0.1 X10'3 (0-0.2); BASOPHILS % (AUTO) 0.9 % (0-1); EOSINOPHILS # (AUTO) 0.2 X10'3 (0-0.9); EOSINOPHILS % (AUTO) 2.4 % (0-6); HEMATOCRIT 49.5 % (42.0-52.0); HEMOGLOBIN 16.7 g/dl (14.0-17.9); LYMPHOCYTES # (AUTO) 1.8 X10'3 (1.1-4.8); LYMPHOCYTES % (AUTO) 21.9 % (21-51); MEAN CORPUSCULAR HEMOGLOBIN 32.4 PG (27.0-31.0); MEAN CORPUSCULAR HGB CONC 33.8 g/dL (33.0-36.5); MEAN CORPUSCULAR VOLUME 95.9 FL (78-98); MEAN PLATELET VOLUME 9.5 FL (7.4-10.4); MONOCYTES # (AUTO) 0.8 X10'3 (0-0.9); MONOCYTES % (AUTO) 10.3 % (2-12); NEUTROPHILS # (AUTO) 5.3 X10'3 (1.8-7.7); NEUTROPHILS % (AUTO) 64.5 % (42-75); PLATELET COUNT 248 X10'3 (140-440); RED BLOOD COUNT 5.16 X10'6 (4.70-6.10); RED CELL DISTRIBUTION WIDTH 13.8 % (11.5-14.5); WHITE BLOOD COUNT 8.2 X10'3 (4.5-11.0)
[2022-04-23 08:24] LABS: ALANINE AMINOTRANSFERASE 27 U/L (12-78); ALBUMIN 3.8 G/DL (3.4-5.0); ALKALINE PHOSPHATASE 116 IU/L (46-116); ANION GAP 13 (8-16); ASPARTATE AMINO TRANSFERASE 24 U/L (10-37); BILIRUBIN,TOTAL 0.9 MG/DL (0.1-1.0); BLOOD UREA NITROGEN 22 MG/DL (7-18); BUN/CREATININE RATIO 21.4 (5.4-32.0); CALCIUM 8.8 MG/DL (8.5-10.1); CHLORIDE 100 MMOL/L (99-107); CREATININE 1.03 MG/DL (0.60-1.10); GLUCOSE 97 MG/DL (70-104); HDL CHOLESTEROL 80 MG/DL (35-60); LDL CHOLESTEROL 122 MG/DL (50-100); MAGNESIUM 1.7 MG/DL (1.5-2.4); PHOSPHORUS 5.2 MG/DL (2.3-4.5); POTASSIUM 3.6 MMOL/L (3.5-5.1); SODIUM 143 MMOL/L (135-145); TOTAL CARBON DIOXIDE 30.1 MMOL/L (24-32); TOTAL PROTEIN 7.6 G/DL (6.4-8.2); TRIGLYCERIDES 76 MG/DL (20-135); eGFR 72 ML/MIN
[2022-04-23 08:36] LABS: CHOL/HDL RATIO 2.8 (0.00-4.99); CHOLESTEROL 227 MG/DL (0-200)
[2022-04-23] MEDS: HEPARIN SOD,PORK IN 0.45% NACL 250 ML IV SCH (10:09)
--- NOTE | 2022-04-23 12:52 | NUR ---
Spoke with patients PRINCIPAL AUTOMATION ENGINEER and was cleared to feed patient all the way up till after lunch, upon switching to NPO for surgical procedure.
[2022-04-23] MEDS ORDERED: LIDOcaine 1% W/epiNEPHrine 1:100,000 20ml vial ONE (16:09)
[2022-04-23] MEDS ORDERED: midazolam 1 mg/ML 2ml injection ONE (16:09)
[2022-04-23] MEDS ORDERED: fentaNYL/PF 50MCG/1 ML 2ML syringe ONE (16:09)
[2022-04-23] MEDS ORDERED: ceFAZolin 1000mg inj ONE (16:51)
[2022-04-23] MEDS ORDERED: cefazolin/dext.iso 2gm/100ml 100 ML IV ONE (17:00)
[2022-04-23] MEDS ORDERED: iohexol 350MG/ML 100ml bottle IV ONE (17:11)
[2022-04-23] MEDS ORDERED: albuterol 2.5 MG/3 ML nebule NEB PRN (18:40)
[2022-04-23] MEDS: ipratropium/albuterol 3ml nebule IH SCH (19:00)
[2022-04-23] MEDS ORDERED: LORazepam 1 MG tablet PO PRN (21:00)
[2022-04-23] MEDS: heparin, porcine 5000 units/ml vial SQ SCH (21:42)
[2022-04-24] MEDS: ceFAZolin/D5W- 1GM premix 50 ML IV SCH ×2 (00:26→08:02)
[2022-04-24 02:00] VITALS: BP 115/76
--- NOTE | 2022-04-24 06:18 | NUR ---
Problems reprioritized. Patient report given, questions answered & plan of care reviewed with Gerardo COOLEY. Addendum: 04/24/22 at 0619 by Yuliet Espinoza RN Amended: Links added.
--- NOTE | 2022-04-24 06:35 | NUR ---
Patient in room PCU 3018. I have received report from Yuliet COOLEY and had the opportunity to ask questions and assume patient care.
[2022-04-24 06:59] LABS: ALANINE AMINOTRANSFERASE 20 U/L (12-78); ALBUMIN 3.8 G/DL (3.4-5.0); ALKALINE PHOSPHATASE 126 IU/L (46-116); ANION GAP 8 (8-16); ASPARTATE AMINO TRANSFERASE 22 U/L (10-37); BILIRUBIN,TOTAL 0.9 MG/DL (0.1-1.0); BLOOD UREA NITROGEN 31 MG/DL (7-18); BUN/CREATININE RATIO 24.2 (5.4-32.0); CHLORIDE 96 MMOL/L (99-107); CREATININE 1.28 MG/DL (0.60-1.10); GLUCOSE 148 MG/DL (70-104); MAGNESIUM 1.6 MG/DL (1.5-2.4); PHOSPHORUS 4.9 MG/DL (2.3-4.5); POTASSIUM 3.9 MMOL/L (3.5-5.1); SODIUM 137 MMOL/L (135-145); TOTAL CARBON DIOXIDE 32.8 MMOL/L (24-32); TOTAL PROTEIN 7.7 G/DL (6.4-8.2); eGFR 56 ML/MIN
[2022-04-24 07:00] LABS: BASOPHILS # (AUTO) 0.1 X10'3 (0-0.2); BASOPHILS % (AUTO) 0.6 % (0-1); EOSINOPHILS # (AUTO) 0.1 X10'3 (0-0.9); EOSINOPHILS % (AUTO) 0.7 % (0-6); HEMOGLOBIN 16.8 g/dl (14.0-17.9); LYMPHOCYTES # (AUTO) 1.8 X10'3 (1.1-4.8); LYMPHOCYTES % (AUTO) 15.2 % (21-51); MEAN CORPUSCULAR HEMOGLOBIN 32.1 PG (27.0-31.0); MEAN CORPUSCULAR HGB CONC 33.5 g/dL (33.0-36.5); MEAN CORPUSCULAR VOLUME 95.7 FL (78-98); MEAN PLATELET VOLUME 9.7 FL (7.4-10.4); MONOCYTES # (AUTO) 1.4 X10'3 (0-0.9); MONOCYTES % (AUTO) 11.9 % (2-12); NEUTROPHILS # (AUTO) 8.5 X10'3 (1.8-7.7); NEUTROPHILS % (AUTO) 71.6 % (42-75); PLATELET COUNT 261 X10'3 (140-440); RED BLOOD COUNT 5.23 X10'6 (4.70-6.10); WHITE BLOOD COUNT 11.8 X10'3 (4.5-11.0)
[2022-04-24 07:30] VITALS: BP 133/83
[2022-04-24] MEDS: K and/or MAG REPLACEMENT MC SCH ×2 (08:00→20:00)
[2022-04-24] MEDS: tamsulosin 0.4mg capsule PO SCH (08:02)
[2022-04-24] MEDS: aspirin 81mg tab.chew PO SCH (08:03)
[2022-04-24] MEDS: cholecalciferol (vitamin D3) 1,000 unit (25mcg) tablet PO SCH (08:03)
[2022-04-24] MEDS: atorvastatin 20mg tablet PO SCH (08:03)
[2022-04-24] MEDS: docusate sod 100mg capsule PO SCH ×2 (08:03→20:29)
[2022-04-24] MEDS: heparin, porcine 5000 units/ml vial SQ SCH ×2 (08:14→20:27)
[2022-04-24] MEDS: HYDROcodone/acetaminophen 5mg/325mg tablet PO PRN ×2 (08:17→20:44)
[2022-04-24] MEDS: furosemide 10 MG/1 ML 10ml inj IV SCH ×2 (08:20→20:28)
[2022-04-24] MEDS: ipratropium/albuterol 3ml nebule IH SCH ×4 (09:07→19:34)
[2022-04-24] MEDS ORDERED: atorvastatin 20mg tablet PO SCH (10:30)
[2022-04-24] MEDS: normal saline 1000ml 1,000 ML IV SCH (11:15)
[2022-04-24 11:39] VITALS: BP 124/79
--- NOTE | 2022-04-24 14:45 | NUR ---
upon entering room found that patient op site looked enlarged with minimal blood on the dressing. Charge was notified, pressure was held for 5 minutes and pressure dressing was applied with use of sandbag as well.
--- NOTE | 2022-04-24 14:48 | NUR ---
Attempted to call and notify Cigarette Lighter Repairer of patients condition but went directly to answering services. Left a detailed message for MD at this time and waiting aviation operations specialist back.
[2022-04-24 15:00] VITALS: BP 127/82
--- NOTE | 2022-04-24 15:02 | NUR ---
Called MD answering service and left message at this time. Addendum: 04/24/22 at 1524 by Andre Ash RN Spoke with Dr. Tulio Brown notified of the patient condition on status of hematoma, was ordered to continue to monitor patients status and continue pressure dressing if site is found to be bleeding, then notify MD. Will continue to keep a close watch on op site.
[2022-04-24 18:00] VITALS: BP 147/93
--- NOTE | 2022-04-24 18:49 | NUR ---
Problems reprioritized. Patient report given, questions answered & plan of care reviewed with Raina COOLEY.
[2022-04-24] MEDS: cephalexin 500mg capsule PO SCH (20:29)
[2022-04-24 22:00] VITALS: BP 138/93
[2022-04-25] MEDS: HYDROcodone/acetaminophen 5mg/325mg tablet PO PRN (01:30)
--- NOTE | 2022-04-25 01:32 | NUR ---
medicated for pain and anxiety no change in the size or swelling of pt's left chest wall area of pacemaker site. pressure dressing remains in place.
[2022-04-25 02:00] VITALS: BP 115/80
--- NOTE | 2022-04-25 03:06 | NUR ---
appears comfortable resting without changes.
[2022-04-25] MEDS: normal saline 1000ml 1,000 ML IV SCH (04:41)
--- NOTE | 2022-04-25 06:12 | NUR ---
Problems reprioritized. Patient report given, questions answered & plan of care reviewed with LENORA FARRELL. Addendum: 04/25/22 at 0613 by Raina Ledezma RN Amended: Links added.
[2022-04-25 06:23] LABS: BASOPHILS # (AUTO) 0.1 X10'3 (0-0.2); BASOPHILS % (AUTO) 0.6 % (0-1); EOSINOPHILS # (AUTO) 0.2 X10'3 (0-0.9); EOSINOPHILS % (AUTO) 1.8 % (0-6); HEMATOCRIT 49.9 % (42.0-52.0); HEMOGLOBIN 16.9 g/dl (14.0-17.9); LYMPHOCYTES # (AUTO) 2.1 X10'3 (1.1-4.8); LYMPHOCYTES % (AUTO) 24.2 % (21-51); MEAN CORPUSCULAR HEMOGLOBIN 32.4 PG (27.0-31.0); MEAN CORPUSCULAR HGB CONC 33.8 g/dL (33.0-36.5); MEAN CORPUSCULAR VOLUME 95.9 FL (78-98); MONOCYTES # (AUTO) 1.1 X10'3 (0-0.9); MONOCYTES % (AUTO) 13.1 % (2-12); NEUTROPHILS # (AUTO) 5.1 X10'3 (1.8-7.7); NEUTROPHILS % (AUTO) 60.3 % (42-75); PLATELET COUNT 215 X10'3 (140-440); WHITE BLOOD COUNT 8.5 X10'3 (4.5-11.0)
[2022-04-25 06:36] LABS: ALANINE AMINOTRANSFERASE 13 U/L (12-78); ALBUMIN 3.7 G/DL (3.4-5.0); ALKALINE PHOSPHATASE 122 IU/L (46-116); ANION GAP 9 (8-16); ASPARTATE AMINO TRANSFERASE 22 U/L (10-37); BLOOD UREA NITROGEN 31 MG/DL (7-18); BUN/CREATININE RATIO 25.6 (5.4-32.0); CALCIUM 8.7 MG/DL (8.5-10.1); CHLORIDE 97 MMOL/L (99-107); CREATININE 1.21 MG/DL (0.60-1.10); GLUCOSE 114 MG/DL (70-104); MAGNESIUM 1.7 MG/DL (1.5-2.4); PHOSPHORUS 4.3 MG/DL (2.3-4.5); POTASSIUM 3.9 MMOL/L (3.5-5.1); SODIUM 139 MMOL/L (135-145); TOTAL PROTEIN 7.4 G/DL (6.4-8.2); eGFR 60 ML/MIN
--- NOTE | 2022-04-25 06:40 | NUR ---
Patient in room PCU 3018. I have received report from Raina COOLEY and had the opportunity to ask questions and assume patient care.
[2022-04-25 07:33] VITALS: BP 122/85
[2022-04-25] MEDS: ipratropium/albuterol 3ml nebule IH SCH ×2 (07:39→11:00)
[2022-04-25] MEDS: K and/or MAG REPLACEMENT MC SCH (08:00)
[2022-04-25] MEDS ORDERED: apixaban 5mg tablet PO SCH (08:00)
[2022-04-25] MEDS: cholecalciferol (vitamin D3) 1,000 unit (25mcg) tablet PO SCH (08:02)
[2022-04-25] MEDS: tamsulosin 0.4mg capsule PO SCH (08:02)
[2022-04-25] MEDS: cephalexin 500mg capsule PO SCH (08:02)
[2022-04-25] MEDS: aspirin 81mg tab.chew PO SCH (08:02)
[2022-04-25] MEDS: docusate sod 100mg capsule PO SCH (08:02)
[2022-04-25] MEDS: atorvastatin 20mg tablet PO SCH (08:03)
[2022-04-25] MEDS: furosemide 10 MG/1 ML 10ml inj IV SCH (08:03)
[2022-04-25 11:00] VITALS: BP 138/81
[2022-04-25] MEDS ORDERED: HYDR-3965 PO ×2 (11:06)
[2022-04-25] MEDS ORDERED: LACT1CAP26 PO ×2 (11:06)
[2022-04-25] MEDS ORDERED: APIX5TAB3 PO ×2 (11:06)
[2022-04-25] MEDS ORDERED: CEPH-585 PO ×2 (11:06)
--- NOTE | 2022-04-25 17:32 | NUR ---
Patient discharged during this shift. Patient was cleared by Parts Interpreter and Hospitalist and was cleared to go home with home health. Patient expressed verbal understanding of discharge instructions and the new medications added to the patients. Patient IV was taken out at this time canula was whole and intact at discharge as well. Patient was taken down in wheel chair and transported home via private vehicle.
[2022-05-03] MEDS ORDERED: APIX5TAB3 PO (16:05)
[2022-05-03] MEDS ORDERED: HYDR-3964 PO (16:05)
[2022-05-03] MEDS ORDERED: LACT1CAP55 PO (16:07)
[2022-05-03] MEDS ORDERED: LACT1CAP26 PO (16:09)
== END 2022-04-25 15:00 | disposition home health service (06) | DRG 242 ==
LOC: ER 07:14 → ED HOLD 11:18 → EDBEDREQ 19:49 → PCU 3S 20:50
PROVIDERS: ADMIT Family Medicine; ATTEND Family Medicine
PROC: 0JH606Z Insertion of Pacemaker, Dual Chamber into Chest Subcutaneous Tissue and Fascia, Open Approach (ICD-10-PCS; principal; 2022-04-23)
PROC: 02H63JZ Insertion of Pacemaker Lead into Right Atrium, Percutaneous Approach (ICD-10-PCS; 2022-04-23)
PROC: 02HK3JZ Insertion of Pacemaker Lead into Right Ventricle, Percutaneous Approach (ICD-10-PCS; 2022-04-23)
DX: I49.5 Sick sinus syndrome (principal); I21.A1 Myocardial infarction type 2; I48.92 Unspecified atrial flutter; I50.32 Chronic diastolic (congestive) heart failure; Z20.822 Contact with and (suspected) exposure to COVID-19; I48.91 Unspecified atrial fibrillation; I11.0 Hypertensive heart disease with heart failure; N40.0 Benign prostatic hyperplasia without lower urinary tract symptoms; F12.90 Cannabis use, unspecified, uncomplicated; E78.5 Hyperlipidemia, unspecified; G89.29 Other chronic pain; M54.9 Dorsalgia, unspecified; F17.210 Nicotine dependence, cigarettes, uncomplicated; F15.90 Other stimulant use, unspecified, uncomplicated; J44.9 Chronic obstructive pulmonary disease, unspecified; Z66 Do not resuscitate; Z79.899 Other long term (current) drug therapy; Z80.3 Family history of malignant neoplasm of breast; Z82.3 Family history of stroke; Z82.49 Family history of ischemic heart disease and other diseases of the circulatory system; Z88.7 Allergy status to serum and vaccine; Z71.6 Tobacco abuse counseling
CPT/HCPCS: 33208; 36415; 71045; 80053; 80061; 81001; 83036; 83735; 83880; 84100; 84484; 85025; 85610; 85730; 87081; 87635; 93005; 93306; 94640; 94760; 96360; 97116; 97161; 97530; 99152; 99153; 99285; A4565; A4620; A6258; A6449; C1785; C1786; C1898; G0378; J0690; J1644; J1940; J2250; J2405; J3010; J3490; J7030; Q9967